=== PATIENT | male | born 1970 | race Caucasian/White ===

== ENCOUNTER 2023-07-03 07:53 | Emergency (ER) | payer OTHER ==
[~2023-07-03] VITALS: Ht 180.3 cm; Wt 98.0 kg
[2023-07-03 07:58] VITALS: O2SAT 99
[2023-07-03] MEDS ORDERED: FLUORESCEIN SODIUM 1MG/STRIP BOTHEYE ONE (08:15)
[2023-07-03] MEDS ORDERED: TETRACAINE 0.5% OPHTH DROPS 4ML BOTHEYE ONE (08:15)
[2023-07-03] MEDS ORDERED: CIPROFLOXACIN 0.3% OPHTH SOLN 2.5ML BOTHEYE ONE (09:15)
[2023-07-03] MEDS ORDERED: CIPR2.5D20 EACHEYE (10:19)
[2023-07-03 12:34] VITALS: BP 124/78; PULSE 89; RESP 16; TEMP 98.4
== END 2023-07-03 12:35 | disposition home or self-care (01) ==
LOC: ER 07:53
DX: T26.92XA Corrosion of left eye and adnexa, part unspecified, initial encounter (principal); T26.91XA Corrosion of right eye and adnexa, part unspecified, initial encounter; I10 Essential (primary) hypertension; Y93.89 Activity, other specified; Y92.89 Other specified places as the place of occurrence of the external cause; Y99.8 Other external cause status
CPT/HCPCS: 71045; 99283